=== PATIENT | female | born 1995 | race Caucasian/White ===

== ENCOUNTER 2024-07-12 07:24 | Outpatient (CLI) | payer OTHER | END 2024-07-12 07:29 | disposition home or self-care (01) | LOC: SONOGRAMA 07:24 | PROVIDERS: ATTEND Internal Medicine | DX: R10.13 Epigastric pain (principal); K25.0 Acute gastric ulcer with hemorrhage; K86.81 Exocrine pancreatic insufficiency; K80.20 Calculus of gallbladder without cholecystitis without obstruction ==

== ENCOUNTER 2024-08-29 07:14 | Outpatient (CLI) | payer OTHER | END 2024-08-29 07:15 | disposition home or self-care (01) | LOC: NUCLEAR 07:14 | PROVIDERS: ATTEND Internal Medicine Gastroenterology | DX: K82.4 Cholesterolosis of gallbladder (principal) ==

== ENCOUNTER 2025-01-18 07:02 | Outpatient (CLI) | payer OTHER | END 2025-01-18 07:08 | disposition home or self-care (01) | LOC: SONOGRAMA 07:02 | PROVIDERS: ATTEND Specialist | DX: K82.4 Cholesterolosis of gallbladder (principal) ==